=== PATIENT | male | born 1960 | race Caucasian/White ===

== ENCOUNTER 2020-05-09 11:45 | Emergency (ER) | payer OTHER ==
[~2020-05-09] VITALS: Ht 175.3 cm; Wt 90.7 kg
[2020-05-09 12:25] VITALS: Ht 175.3 cm; Wt 90.7 kg
[2020-05-09 13:15] VITALS: BP 113/71
== END 2020-05-09 13:15 | disposition home or self-care (01) ==
LOC: ED 11:45
DX: B34.9 Viral infection, unspecified (principal); Z88.0 Allergy status to penicillin; Z88.5 Allergy status to narcotic agent
CPT/HCPCS: Q0162